=== PATIENT | male | born 1975 | race Caucasian/White ===

== ENCOUNTER 2016-10-28 13:04 | Emergency (ER) | payer MEDICAID, OTHER ==
--- NOTE | 2016-10-28 13:31 | ER Document Report ---
ED Medical Screen (RME) - General Stated Complaint: WEAKNESS Notes: Patient was brought in by EMS today because of reported weakness, and being diaphoretic. Patient is also pale. He lives in an adult senior care. Patient is diabetic. Blood sugar 62 per EMS. I have greeted and performed a rapid initial assessment of this patient. A comprehensive ED assessment and evaluation of the patient, analysis of test results and completion of the medical decision making process will be conducted by additional ED providers. TRAVEL OUTSIDE OF THE [place] IN LAST 30 DAYS: No - Related Data Allergies/Adverse Reactions: No Known Allergies Allergy (Verified 10/28/16 13:26) Past Medical History - Past Medical History Cardiac Medical History: Reports: Hx Hypercholesterolemia, Hx Hypertension Endocrine Medical History: Reports: Hx Diabetes Mellitus Type 1, Hx Diabetes Mellitus Type 2 Psychiatric Medical History: Reports: Hx Bipolar Disorder, Hx Schizoaffective Disorder, Hx Schizophrenia Past Surgical History: Reports: Hx Tonsillectomy - Immunizations Immunizations up to date: No Hx Diphtheria, Pertussis, Tetanus Vaccination: No Physical Exam - Vital signs Vitals: Pulse Resp BP Pulse Ox 73 20 138/99 H 88 L 10/28/16 13:21 10/28/16 13:21 10/28/16 13:21 10/28/16 13:21 - General Notes: Patient is well, and diaphoretic on exam. Lethargic in his responses. Accu- Chek done in triage was 50. Crackers and orange juice with sugar ordered for patient. Pt taken to room 7. Course - Vital Signs Vital signs: Temp Pulse Resp BP Pulse Ox 73 20 138/99 H 88 L 10/28/16 13:21 10/28/16 13:21 10/28/16 13:21 10/28/16 13:21
--- NOTE | 2016-10-28 14:17 | ER Document Report ---
ED General - General Time seen by provider: 14:30 Mode of Arrival: Medic Information source: Patient, Parent TRAVEL OUTSIDE OF THE [place] IN LAST 30 DAYS: No - HPI Onset: Other - see HPI note Associated symptoms: Weakness <PEE RAMIREZ - Last Filed: 10/28/16 15:34> <WILL GARZA - Last Filed: 10/28/16 17:17> - General Chief Complaint: Cough Stated Complaint: WEAKNESS Notes: Patient is a 41 year old male presenting to the emergency department from care home for increased blood pressure, heart palpitations. After entering room patient was very somnolent with some slurred speech. History and exam was interrupted to order/give D50 for the patient since he had a blood glucose level of 50 at 13:27. Patient's mother is present and states that the patient usually has slurred speech but is more weak today. Patient states he does not think he ate breakfast or lunch today. Patient has a dry cough that is consistent with his smoking. Patient has a history of diabetes mellitus. Patient is in a day program for some hallucinations that he has been having. Patient has no known allergies. (PEE RAMIREZ) - Related Data Allergies/Adverse Reactions: No Known Allergies Allergy (Verified 10/28/16 13:26) Past Medical History - General Information source: Patient, [facility] Records - Social History Smoking Status: Current Every Day Smoker Lives with: Other - care home Family History: None - Past Medical History Cardiac Medical History: Reports: Hx Hypercholesterolemia, Hx Hypertension Endocrine Medical History: Reports: Hx Diabetes Mellitus Type 1, Hx Diabetes Mellitus Type 2 Psychiatric Medical History: Reports: Hx Bipolar Disorder, Hx Schizoaffective Disorder, Hx Schizophrenia Past Surgical History: Reports: Hx Tonsillectomy - Immunizations Immunizations up to date: No Hx Diphtheria, Pertussis, Tetanus Vaccination: No <PEE RAMIREZ - Last Filed: 10/28/16 15:34> Review of Systems - Review of Systems Constitutional: See HPI, Weakness EENT: No symptoms reported Cardiovascular: See HPI, Palpitations Respiratory: No symptoms reported Gastrointestinal: See HPI Genitourinary: No symptoms reported Male Genitourinary: No symptoms reported Musculoskeletal: No symptoms reported Skin: No symptoms reported Hematologic/Lymphatic: No symptoms reported Neurological/Psychological: See HPI -: Yes All other systems reviewed and negative <PEE RAMIREZ - Last Filed: 10/28/16 15:34> Physical Exam - Vital signs Interpretation: Normal <PEE RAMIREZ - Last Filed: 10/28/16 15:34> <KATHYWILL QUINTERO - Last Filed: 10/28/16 17:17> - Vital signs Vitals: Pulse Resp BP Pulse Ox 73 20 138/99 H 88 L 10/28/16 13:21 10/28/16 13:21 10/28/16 13:21 10/28/16 13:21 - Notes Notes: GENERAL: Well-appearing, well-nourished and in no acute distress HEAD: Atraumatic, normocephalic EYES: Pupils equal round and reactive to light, extraocular movements intact, sclera anicteric, no conjunctival injection or discharge ENT: Nares patent, oropharynx clear without exudates, moist mucous membranes NECK: Normal range of motion, supple without lymphadenopathy LUNGS: Mild decreased breath sounds with wheezes. HEART: Regular rate and rhythm without murmurs ABDOMEN: Soft, non-tender, normoactive bowel sounds. No guarding, no rebound. No masses appreciated. No [place] sign BACK: No CVA tenderness. EXTREMITIES: Normal range of motion, no calf tenderness, no edema NEUROLOGICAL: Cranial nerves grossly intact. Slightly slurred speech which is patient's baseline according mother, Normal sensory and motor exams. No gross cerebellar abnormalities PSYCH: Slightly somnolent, normal affect SKIN: Warm, Dry, normal turgor, no lesions noted (PEE RAMIREZ) Course - Laboratory Result Diagrams: 10/28/16 14:53 10/28/16 13:38 <PEE RAMIREZ - Last Filed: 10/28/16 15:34> - Laboratory Result Diagrams: 10/28/16 14:53 10/28/16 14:53 - EKG Interpretation by Nc Rate: Normal Rhythm: NSR - Lateral T-wave inversion and flattening [place]/QRS: Left axis deviation Heart block present: 1st Degree - Borderline When compared to previous EKG there are: No significant change - 11/26/14 <KATHYWILL - Last Filed: 10/28/16 17:17> - Re-evaluation Re-evalutation: 10/28/16 17:13 Mother reports patient is still at baseline. He is staying awake, his sugars have remained stable slightly elevating after eating. He appears to have a mild bronchitis and with his bronchospasm we will place him on antibiotics and an inhaler. (WILL GARZA) - Vital Signs Vital signs: Temp Pulse Resp BP Pulse Ox 73 20 138/99 H 88 L 10/28/16 13:21 10/28/16 13:21 10/28/16 13:21 10/28/16 13:21 - Laboratory Laboratory results interpreted by me: 10/28/16 10/28/16 10/28/16 13:27 14:40 14:53 RBC 4.30 L Hgb 13.1 L RDW 18.6 H Plt Count 140 L Lymphocytes % 9.0 L Monocytes % 16.0 H Glucose POC Glucose 50 L 140 H ALT Creatine Kinase 10/28/16 10/28/16 14:53 15:41 RBC Hgb RDW Plt Count Lymphocytes % Monocytes % Glucose 147 H POC Glucose 149 H ALT 20 L Creatine Kinase 32 L Discharge <PEE RAMIREZ - Last Filed: 10/28/16 15:34> <WILL GARZA - Last Filed: 10/28/16 17:17> - Discharge Clinical Impression: Hypoglycemia, Bronchitis, acute, with bronchospasm Condition: Good Disposition: HOME, SELF-CARE Instructions: Hypoglycemia ([facility]) Additional Instructions: BRONCHITIS WITH BRONCHOSPASM (WHEEZING): You have bronchitis with bronchospasm (wheezing). Sometimes people develop wheezing with a chest cold. This occurs either because of an underlying tendency toward asthma or because the virus itself irritates the bronchial tubes. This irritation causes cough, shortness of breath, and wheezing. Emergency treatment of bronchospasm may include adrenaline shots or bronchodilator aerosol. You may feel lightheaded and have a rapid pulse for an hour or two. Rest and get plenty of fluids. At home, we'll treat you with a bronchodilator inhaler. Corticosteroids may be required for some patients. Until you recover, avoid chemical fumes, dusts, pollens, and exercising in very cold or dry air. If you smoke, stop now! Most cases of bronchitis get better without antibiotics. We prescribe antibiotics when we believe bacteria are damaging your airways, or if there's high risk the bronchitis will worsen into pneumonia. Increase your fluid intake. A cool mist humidifier may make your lungs more comfortable. An expectorant (cough medicine that loosens phlegm) can help. Repeated episodes of bronchitis and bronchospasm may result in lung damage -- for example, chronic bronchitis, recurrent pneumonias, or emphysema. If you develop a fever, increased wheezing, chest pain, or severe shortness of breath, you should contact the doctor immediately. AZITHROMYCIN: Azithromycin (Zithromax) is a broad spectrum antibiotic in the same class as erythromycin. It can treat a variety of bacterial infections, but is most frequently used for respiratory infections. Azithromycin is extremely long-lasting. It accumulates in body tissues and continues to kill bacteria for many days. In order to improve absorption, Azithromycin should be taken at least one hour before or two hours after a meal. It does not have the same strong tendency to upset the stomach as erythromycin and is usually very well tolerated. Patients who have had a rash or other true allergic reactions to erythromycin should not take this medication. Call if you develop gastrointestinal distress, severe diarrhea, rash, hives, itching, or shortness of breath. SMOKING: If you smoke, you should stop smoking. The tar and chemicals in cigarette smoke are harmful. Smoking has been shown to cause: emphysema chronic bronchitis lung cancer mouth and throat cancer stomach and pancreas cancer premature aging defects In addition, smoking increases ear and lung infections in children of smokers. FOLLOW-UP CARE: If you have been referred to a physician for follow-up care, call the physician s office for an appointment as you were instructed or within the next two days. If you experience worsening or a significant change in your symptoms, notify the physician immediately or return to the Emergency Department at any time for re-evaluation. Prescriptions: Albuterol Sulfate [Proair HFA Inhalation Aerosol 8.5 gm MDI] 2 puff IH Q4H PRN # 1 mdi PRN Reason: Azithromycin [Zithromax 250 mg Tablet] 250 mg PO ASDIR PRN #6 tablet PRN Reason: Scribe Documentation - Scribe Written by Tressa:: Pee Ramirez 10/28/16 15:30 acting as scribe for :: Kathy <PEE RAMIREZ - Last Filed: 10/28/16 15:34>
[2016-10-28] MEDS ORDERED: DEXTROSE 50%-WATER 25 GM/50 ML DISP.SYRIN IV ONE ×2 (14:33→14:35)
[2016-10-28 15:17] LABS: ABSOLUTE EOSINOPHILS # (AUTO) 0.2 10^3/uL (0.0-0.6); ABSOLUTE LYMPHOCYTES (AUTO) 0.6 10^3/uL (0.5-4.7); ABSOLUTE MONOCYTES (AUTO) 1.1 10^3/uL (0.1-1.4); BASOPHILS % (AUTO) 0.5 % (0-2); EOSINOPHILS % (AUTO) 3.5 % (0-6); HEMATOCRIT 39.2 % (37.9-51.0); HEMOGLOBIN 13.1 g/dL (13.5-17.0); HGB HCT DIFFERENCE 0.1; MEAN CORPUSCULAR HEMOGLOBIN 30.4 pg (27.0-33.4); MEAN CORPUSCULAR HGB CONC 33.3 g/dL (32.0-36.0); MEAN CORPUSCULAR VOLUME 91 fl (80-97); RED CELL DISTRIBUTION WIDTH 18.6 % (11.5-14.0)
[2016-10-28 15:41] LABS: ALANINE AMINOTRANSFERASE 20 U/L (21-72); ALBUMIN 3.9 g/dL (3.5-5.0); ALKALINE PHOSPHATASE 59 U/L (38-126); ANION GAP 13 (5-19); ASPARTATE AMINO TRANSFERASE 23 U/L (17-59); BILIRUBIN,DIRECT 0.4 mg/dL (0.0-0.4); BILIRUBIN,TOTAL 1.1 mg/dL (0.2-1.3); BLOOD UREA NITROGEN 12 mg/dL (7-20); CALCIUM 9.8 mg/dL (8.4-10.2); CARBON DIOXIDE 26 mmol/L (22-30); CHLORIDE 103 mmol/L (98-107); CREATINE KINASE 32 U/L (55-170); CREATININE RESULT 0.68 mg/dL (0.52-1.25); GLUCOSE 147 mg/dL (75-110); LIPASE 44.7 U/L (23-300); POTASSIUM 4.2 mmol/L (3.6-5.0); SODIUM 142.1 mmol/L (137-145); TOTAL PROTEIN 6.9 g/dL (6.3-8.2)
[2016-10-28 15:52] LABS: CREATINE KINASE MB < 0.22 ng/mL (<4.55); TROPONIN I < 0.012 ng/mL
--- NOTE | 2016-10-28 18:20 | EKG REPORT ---
SEVERITY:- ABNORMAL ECG - SINUS RHYTHM FIRST DEGREE AV BLOCK LEFT AXIS DEVIATION LOW VOLTAGE IN FRONTAL LEADS NONSPECIFIC T ABNORMALITIES, LATERAL LEADS : Confirmed by: Edward Berry MD 28-Oct-2016 18:19:21
[2016-10-28 18:21] VITALS: BP 152/99
== END 2016-10-28 18:21 | disposition home or self-care (01) ==
LOC: ER 13:04
DX: J20.9 Acute bronchitis, unspecified (principal); R05 Cough; R53.1 Weakness; F17.200 Nicotine dependence, unspecified, uncomplicated; E16.2 Hypoglycemia, unspecified
CPT/HCPCS: 36415; 71020; 80053; 82550; 82553; 82962; 83690; 84484; 85025; 93005; 93010; 99285

== ENCOUNTER 2016-10-31 20:10 | Emergency (ER) | payer MEDICAID ==
[2016-10-31] MEDS ORDERED: ALBUTEROL SULFATE 0.083% NEB 2.5 MG/3 ML AMPUL NEB ONE (20:28)
[2016-10-31] MEDS ORDERED: IPRATROPIUM/ALBUTEROL 0.5-2.5 MG/3 ML AMPUL NEB ONE (20:28)
--- NOTE | 2016-10-31 20:29 | ER Document Report ---
ED General - General Stated Complaint: DIFFICULTY BREATHING Time seen by provider: 20:29 Mode of Arrival: Medic Information source: Emergency Med Personnel TRAVEL OUTSIDE OF THE [place] IN LAST 30 DAYS: No - HPI Patient complains to provider of: difficulty breathing, low blood sugar Onset: Just prior to arrival Quality of pain: No pain Associated symptoms: Nonproductive cough Exacerbated by: Denies Relieved by: Denies Similar symptoms previously: Yes Recently seen / treated by doctor: Yes Notes: Patient is a 41-year-old male with history of schizophrenia as well as diabetes and COPD, he is a smoker, he was brought to emergency room by EMS for complaints of difficulty breathing and was noted to have a blood sugar in the 40s upon arrival, with decrease responsiveness, patient was seen in this emergency room approximately 2 days ago for similar symptoms and diagnosed with bronchitis, he continues to smoke cigarettes, his mother reports that he also has poor eating habits but continues to take his diabetes medication - Related Data Allergies/Adverse Reactions: No Known Allergies Allergy (Verified 10/28/16 13:26) Past Medical History - General Information source: Patient - Social History Smoking Status: Current Every Day Smoker Family History: None - Past Medical History Cardiac Medical History: Reports: Hx Hypercholesterolemia, Hx Hypertension Endocrine Medical History: Reports: Hx Diabetes Mellitus Type 1, Hx Diabetes Mellitus Type 2 Renal/ Medical History: Denies: Hx Peritoneal Dialysis Psychiatric Medical History: Reports: Hx Bipolar Disorder, Hx Schizoaffective Disorder, Hx Schizophrenia Past Surgical History: Reports: Hx Tonsillectomy - Immunizations Immunizations up to date: No Hx Diphtheria, Pertussis, Tetanus Vaccination: No Review of Systems - Review of Systems Constitutional: No symptoms reported EENT: No symptoms reported Cardiovascular: No symptoms reported Respiratory: See HPI Gastrointestinal: No symptoms reported Genitourinary: No symptoms reported Male Genitourinary: No symptoms reported Musculoskeletal: No symptoms reported Skin: No symptoms reported Hematologic/Lymphatic: No symptoms reported Neurological/Psychological: See HPI -: Yes All other systems reviewed and negative Physical Exam - Vital signs Vitals: Resp BP Pulse Ox 16 139/105 H 90 L 10/31/16 20:28 10/31/16 20:28 10/31/16 20:28 Interpretation: Normal - General General appearance: Alert In distress: Mild - HEENT Head: Normocephalic, Atraumatic Eyes: Normal Conjunctiva: Normal Extraocular movements intact: Yes Eyelashes: Normal Pupils: PERRL - Respiratory Respiratory status: No respiratory distress Chest status: Nontender Breath sounds: Nonproductive cough, Wheezing Chest palpation: Normal - Cardiovascular Rhythm: Regular Heart sounds: Normal auscultation Murmur: No - Abdominal Inspection: Normal, Obese Distension: No distension Bowel sounds: Normal Tenderness: Nontender Organomegaly: No organomegaly - Back Back: Normal, Nontender - Extremities General upper extremity: Normal inspection, Nontender, Normal color, Normal ROM , Normal temperature General lower extremity: Normal inspection, Nontender, Normal color, Normal ROM , Normal temperature, Normal weight bearing. No: Getachew's sign - Neurological Ah[place] Coma Scale Eye Opening: To Voice [place] Coma Scale Verbal: Inappropriate [place] Coma Scale Motor: Obeys Commands Skye Coma Scale Total: 12 Motor strength normal: LUE, RUE, LLE, RLE Sensory: Normal - Skin Skin Temperature: Warm Skin Moisture: Dry Skin Color: Normal Course - Re-evaluation Re-evalutation: 10/31/16 21:38 Patient is much more awake and alert, he is talking to his mother at bedside, although his story is a little bit confabulated he is doing much better, mother reports that he is a history of schizophrenia and he appears to be at baseline according to her 11/01/16 04:03 Patient was doing much better, awake and alert, lungs clear to auscultation, he was able to ambulate to the restroom without difficulty, he was given a meal in the emergency room, blood sugars were much more adequate, he was discharged with instructions for follow-up and advised to return if symptoms worsen, patient and mother at bedside acknowledge understanding and agreement with this plan - Vital Signs Vital signs: Temp Pulse Resp BP Pulse Ox 97.1 F 59 L 18 153/119 H 99 10/31/16 20:30 10/31/16 20:30 11/01/16 00:04 10/31/16 23:01 11/01/16 00:04 - Laboratory Result Diagrams: 10/31/16 20:45 10/31/16 20:45 Laboratory results interpreted by me: 10/31/16 10/31/16 10/31/16 20:45 20:45 20:45 RBC 4.14 L Hgb 12.6 L Hct 37.5 L RDW 18.2 H Plt Count 130 L Band Neutrophils % 2 L Glucose 127 H Direct Bilirubin 0.5 H Creatine Kinase 52 L NT-Pro-B Natriuret Pep 6350 H Albumin 3.3 L Salicylates < 1.0 L Acetaminophen < 10 L - Diagnostic Test Radiology reviewed: Image reviewed, Reports reviewed Discharge - Discharge Clinical Impression: Bronchitis, acute, with bronchospasm, Hypoglycemia Condition: Stable Disposition: HOME, SELF-CARE Instructions: Hypoglycemia ([facility]), Bronchitis ([facility]), Bronchitis With Bronchospasm (Wheezing) ([facility]) Additional Instructions: Follow up with your primary care provider in one to 2 days. Return to the emergency room immediately if symptoms worsen or any additional concerns. Forms: Smoking Cessation Education Referrals: JEREMIAS TEJEDA MD [Primary Care Provider] - Follow up as needed
[2016-10-31] MEDS ORDERED: DEXTROSE 50%-WATER 25 GM/50 ML DISP.SYRIN IV ONE (20:30)
[2016-10-31 21:05] LABS: VENOUS BLOOD HCO3 25.8 mmol/L (20-32); VENOUS BLOOD PCO2 46.7 mmHg (35-63); VENOUS BLOOD PH 7.36 (7.30-7.42)
[2016-10-31 21:07] LABS: HEMATOCRIT 37.5 % (37.9-51.0); HEMOGLOBIN 12.6 g/dL (13.5-17.0); HGB HCT DIFFERENCE 0.3; MEAN CORPUSCULAR HEMOGLOBIN 30.4 pg (27.0-33.4); MEAN CORPUSCULAR HGB CONC 33.5 g/dL (32.0-36.0); MEAN CORPUSCULAR VOLUME 91 fl (80-97); RED BLOOD COUNT 4.14 10^6/uL (4.35-5.55); RED CELL DISTRIBUTION WIDTH 18.2 % (11.5-14.0); WHITE BLOOD COUNT 7.1 10^3/uL (4.0-10.5)
[2016-10-31 21:24] LABS: ALANINE AMINOTRANSFERASE 24 U/L (21-72); ALBUMIN 3.3 g/dL (3.5-5.0); ALKALINE PHOSPHATASE 52 U/L (38-126); ANION GAP 12 (5-19); ASPARTATE AMINO TRANSFERASE 26 U/L (17-59); BILIRUBIN,DIRECT 0.5 mg/dL (0.0-0.4); BILIRUBIN,TOTAL 0.9 mg/dL (0.2-1.3); BLOOD UREA NITROGEN 14 mg/dL (7-20); CALCIUM 9.1 mg/dL (8.4-10.2); CARBON DIOXIDE 27 mmol/L (22-30); CHLORIDE 103 mmol/L (98-107); CREATINE KINASE 52 U/L (55-170); CREATININE RESULT 0.69 mg/dL (0.52-1.25); GLUCOSE 127 mg/dL (75-110); POTASSIUM 3.7 mmol/L (3.6-5.0); SODIUM 141.5 mmol/L (137-145); TOTAL PROTEIN 6.4 g/dL (6.3-8.2)
[2016-10-31 21:25] LABS: ALCOHOL < 10 mg/dL (NONE DETECTED)
[2016-10-31 21:30] LABS: BAND NEUTROPHILS % (MANUAL) 2 % (3-5); BASOPHILS % (MANUAL) 0 % (0-2); EOSINOPHILS % (MANUAL) 4 % (0-6); LYMPHOCYTES % (MANUAL) 32 % (13-45); TOTAL CELLS COUNTED 100
[2016-10-31 21:31] LABS: ANISOCYTOSIS 1+; BURR CELLS SLIGHT; HELMET CELLS SLIGHT; OVALOCYTES 1+; POIKILOCYTOSIS 2+
[2016-10-31 21:35] LABS: CREATINE KINASE MB 0.65 ng/mL (<4.55); TROPONIN I < 0.012 ng/mL
[2016-11-01 04:37] VITALS: BP 128/96
== END 2016-11-01 01:00 | disposition home or self-care (01) ==
LOC: ER 20:10
DX: J20.9 Acute bronchitis, unspecified (principal); E11.649 Type 2 diabetes mellitus with hypoglycemia without coma; F17.200 Nicotine dependence, unspecified, uncomplicated; R06.00 Dyspnea, unspecified; R05 Cough; E78.00 Pure hypercholesterolemia, unspecified; I10 Essential (primary) hypertension
CPT/HCPCS: 94640 ×2; 99285; 96374; 36415; 87040; 82553; 82962; 80307 ×3; 82550; 85025; 87077; 80053; 84484; 82803; 83880; 71010; J3490; J7620

== ENCOUNTER → 2017-01-19 | Outpatient (CLI) | payer MEDICAID ==
--- NOTE | 2017-01-22 11:05 | XCELERA REPORT ---
[address] [address] Transthoracic Echocardiogram Report Name: JEAN PIERRE MOTT Age: 41 yrs Gender: Male : 1975 Patient Status: Outpatient Patient Location: [facility] Study Date: 01/19/2017 10:32 AM Height: 70 in Weight: 240 lb BSA: 2.3 m2 Procedure: A complete two-dimensional transthoracic echocardiogram was performed (2D, M-mode, spectral and color flow Doppler). The study was technically adequate with some images being suboptimal in quality. Reason For Study: HEART FAILURE Ordering Physician: JEREMIAS TYLER Performed By: Karina Miller Interpretation Summary Left ventricular systolic function is mildly reduced. The Ejection Fraction estimate is 40-45% Doppler measurements suggest pseudonormalized left ventricular relaxation, which is associated with grade II/IV or mild to moderate diastolic dysfunction There is mild concentric left ventricular hypertrophy. The left ventricle is grossly normal size. There is mild global hypokinesis of the left ventricle. The right ventricle is mildly dilated. The right ventricular systolic function is normal. The right atrium is mildly dilated. The left atrium is moderately dilated. There is a trace to mild amount of mitral regurgitation There is no mitral valve stenosis. There is no aortic valve stenosis No aortic regurgitation is present. There is a trace or physiologic amount of tricuspid regurgitation Tricuspid regurgitation jet envelope not well defined to measure RV systolic pressure accurately. The aortic root is not well visualized but is probably normal size. The inferior vena cava appeared normal and decreased > 50% with respiration (RAP 5-10 mmHg) Minimal pericardial effusion. MMode/2D Measurements \T\ Calculations RVDd: 3.0 cm LVIDd: 5.1 cm FS: 26.2 % Ao root diam: 2.9 cm IVSd: 0.99 cm LVIDs: 3.8 cm EDV(Teich): LVPWd: 1.0 cm 123.0 ml Ao root area: 6.7 cm2 ESV(Teich): LA dimension: 5.4 cm 60.2 ml EF(Teich): 51.0 % LA A2Cs: LA A4Cs: LA length: 7.2 cmLA Vol Index (BP): 23.3 cm2 25.0 cm2 30.6 ml/m2 LA Volume: 69.1 ml Doppler Measurements \T\ Calculations MV E max arnol: MV P1/2t max arnol: Ao V2 max: LV V1 max P.7 cm/sec 98.2 cm/sec 114.0 cm/sec 3.2 mmHg MV A max arnol: MV P1/2t: 57.6 msec Ao max PG: LV V1 max: 25.7 cm/sec 5.2 mmHg 89.3 cm/sec MV E/A: 3.8 MVA(P1/2t): 3.8 cm2 MV dec slope: 499.6 cm/sec2 MV dec time: 0.19 sec PA V2 max: PI end-d arnol: TR max arnol: 80.5 cm/sec 144.5 cm/sec 196.8 cm/sec PA max PG: TR max P.6 mmHg 15.5 mmHg Left Ventricle The left ventricle is grossly normal size. There is mild concentric left ventricular hypertrophy. Left ventricular systolic function is mildly reduced. The Ejection Fraction estimate is 40-45%. Doppler measurements suggest pseudonormalized left ventricular relaxation, which is associated with grade II/IV or mild to moderate diastolic dysfunction. There is mild global hypokinesis of the left ventricle. Right Ventricle The right ventricle is mildly dilated. There is normal right ventricular wall thickness. The right ventricular systolic function is normal. Atria The right atrium is mildly dilated. The left atrium is moderately dilated. Mitral Valve The mitral valve leaflets are sclerotic, but show no functional abnormalities. There is no mitral valve stenosis. There is a trace to mild amount of mitral regurgitation. Aortic Valve The aortic valve is grossly normal. There is no aortic valve stenosis. No aortic regurgitation is present. Tricuspid Valve The tricuspid valve is not well visualized, but is grossly normal. There is no tricuspid stenosis. There is a trace or physiologic amount of tricuspid regurgitation. Tricuspid regurgitation jet envelope not well defined to measure RV systolic pressure accurately. Pulmonic Valve The pulmonic valve is not well visualized. Great Vessels The aortic root is not well visualized but is probably normal size. The inferior vena cava appeared normal and decreased > 50% with respiration (RAP 5-10 mmHg). Effusions Minimal pericardial effusion. : JEREMIAS TYLER > Lina Livingston
== END ==
LOC: SP 10:09
PROVIDERS: ATTEND Family Medicine
DX: I50.32 Chronic diastolic (congestive) heart failure (principal)
CPT/HCPCS: 93306

== ENCOUNTER → 2019-02-05 | Outpatient (CLI) | payer MEDICAID ==
--- NOTE | 2019-02-05 14:57 | EKG REPORT ---
SEVERITY:- ABNORMAL ECG - ATRIAL FLUTTER FIBRILLATION PAIRED VENTRICULAR PREMATURE COMPLEXES LEFT AXIS DEVIATION LOW VOLTAGE IN FRONTAL LEADS CONSIDER ANTERIOR INFARCT NONSPECIFIC T ABNORMALITIES, LATERAL LEADS : Confirmed by: Lina Livingston 05-Feb-2019 14:56:27
== END ==
LOC: OD 12:40
PROVIDERS: ATTEND Family Medicine
DX: I48.2 Chronic atrial fibrillation (principal)
CPT/HCPCS: 93005; 93010